=== PATIENT | female | born 1960 | race Caucasian/White ===

== ENCOUNTER 2022-01-13 09:05 | Observation (INO) ==
[2022-01-08 20:23] LABS: Basophils # (Auto) 0.04 K/mcL (0.00-0.30); Basophils % (Auto) 0.5 % (0.0-2.0); Eosinophils # (Auto) 0.12 K/mcL (0.00-0.70); Eosinophils % (Auto) 1.4 % (0.0-7.0); Hemoglobin 13.7 g/dL (11.2-15.7); Lymphocytes # (Auto) 2.17 K/mcL (1.50-4.80); Lymphocytes % (Auto) 25.5 % (15.5-49.0); Mean Cell Volume 98.3 fL (80.0-100.0); Mean Corpuscular HGB Conc 33.4 g/dL (31.0-36.0); Monocytes # (Auto) 0.53 K/mcL (0.10-0.90); Monocytes % (Auto) 6.2 % (1.0-12.0); Neutrophils % (Auto) 66.2 % (38.0-78.0); Platelet Count 233 K/mcL (140-440); RBC 4.17 M/mcL (3.59-5.38); Red Cell Distribution Width 13.2 % (11.5-14.5); WBC 8.5 K/mcL (4.5-11.0)
[2022-01-08 20:35] LABS: Blood Urea Nitrogen 23 mg/dL (6-20); Calcium 9.8 mg/dL (8.6-10.4); Carbon Dioxide 24 mmol/L (22-30); Chloride 104 mmol/L (96-108); Glomerular Filtration Rate 80; Glucose 109 mg/dL (70-105)
--- NOTE | 2022-01-09 07:52 | EKG ---
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
[~2022-01-13 09:05] MED LIST: ceFAZolin 2 GM in DEXTROSE 5% IN WATER 50 ML IV SCH
--- NOTE | 2022-01-13 11:05 | General Surg History&Physical ---
HPI History of Present Illness Patient information: Note initiated : 01/13/22 at 11:03 am Service Date, if different from initiated Date: [] Patient: Gisela Leung 61 y/o F admitted on for Open Hernia Repair Incisional, Open Parastomal. Chief Complaint: [] Chief complaint: Patient presents today for elective incisional hernia and parastomal hernia History of present illness: This is a pleasant 60-year-old female who approximately 5 years ago came in with a GI bleed, she was transferred to [place] where she underwent an exploratory laparotomy with resection of colon and the end ostomy. Patient subsequently ended up with an incisional hernia she underwent a hernia repair with subsequent mesh infection. She underwent exploratory laparotomy with removal of the mesh. Approximately 2 years ago she had an incarcerated parastomal hernia, she underwent a exploratory laparotomy reciting of the stoma and hernia repair without mesh. Since that time she has noticed a recurrent bulge in her incision and around her stoma. At this time she has no fevers chills nausea or vomiting. She is having normal bowel movements and has no obstructive symptoms at this time. She reports that the hernias are gradually getting larger, are starting to interfere with her normal activities. Patient is here to follow-up CT scan abdomen pelvis. CT shows a 6 to 7 cm ventral incisional hernia along with a parastomal hernia. She has multiple loops of bowel in both hernias raising concern for loss of abdominal domain. Patient with no change in his symptoms since she was last seen in clinic. PFSH PFSH All Active Problems (Updated 01/13/22 @ 11:04 by Paulo Tan MD) Parastomal hernia (Acute) Chest pain, non-cardiac (Acute) Recurrent incisional hernia (Chronic) Colostomy in place (Chronic) Osteoarthritis (Acute) Tobacco abuse (Chronic) Hypertension, essential (Chronic) Hepatitis, alcoholic (Chronic) Fatty liver, alcoholic (Chronic) Fatigue (Chronic) COPD (chronic obstructive pulmonary disease) (Chronic) Alcohol abuse, continuous (Chronic) Medical History (Updated 01/13/22 @ 11:04 by Paulo Tan MD) Alcohol abuse, continuous 04/01/2014 - Dr. Vegas 4-6 drinks/day 10/31/2019 (ER Dr. Oates). Colon polyp (07/05/2014-Nissa) TA Colostomy in place COPD (chronic obstructive pulmonary disease) 04/01/2014 - Dr. Vegas Diverticulitis Elevated liver enzymes 04/01/2014 - Dr. Vegas Fatigue Fatty liver, alcoholic 04/02/2014 - Dr. Vegas Hepatitis, alcoholic 04/01/2014 - Dr. Vegas Hypertension, essential Hypomagnesemia 04/01/2014 - Dr. Vegas Metabolic acidosis 04/01/2014 - Dr. Vegas Pyuria 04/01/2014 - Dr. Vegas Tobacco abuse Surgical History H/O colonoscopy (07/05/14) TA H/O tubal ligation 1989 History of colonoscopy (09/06/16) Family History Grandmother-maternal Essential hypertension Myocardial Infarction Arthritis Sister Migraine Father Essential hypertension Cerebrovascular accident Grandmother-paternal Essential hypertension Myocardial Infarction Uncle Malignant neoplasm of colon Grandfather-paternal Malignant neoplasm of lung Mother Arthritis Migraine Sleep apnea Social History marital status: other: Children-3 smoking status: Current every day smoker and Heavy tobacco smoker alcohol intake frequency: 2+ drinks per day substance use type: does not use MEDS/ALLERGIES Home Medications and Allergies Home Medications Medication Instructions Recorded Confirmed Type loperamide 2 mg tablet 2 mg PO Q2-4H PRN loose stool #60 11/09/19 01/13/22 Rx tabs albuterol sulfate 2.5 mg/3 mL 2.5 mg (3 mL) inhalation QID PRN 12/05/20 01/13/22 Rx (0.083 %) solution for nebulization shortness of breath or wheezing #15 mL fluticasone propionate 50 2 spray intranasal QDAY #48 grams 09/02/21 01/13/22 Rx mcg/actuation nasal spray,suspension famotidine 20 mg tablet See Rx Instructions .Route 10/21/21 01/13/22 Rx .COMPLEX #180 tabs ipratropium bromide 17 2 inh inhalation QID #12.9 grams 12/16/21 01/13/22 Rx mcg/actuation HFA aerosol inhaler (Atrovent HFA) albuterol sulfate 90 mcg/actuation 2 puff inhalation Q4H PRN 12/30/21 01/13/22 Rx aerosol inhaler (Proventil HFA) shortness of breath or wheezing #8.5 grams Allergies Allergy/AdvReac Type Severity Reaction Status Date / Time tramadol AdvReac Severe HALLUCINATI Verified 01/13/22 09:18 ONS Physical Examination Vital Signs Vital signs: Temp Pulse Resp BP Pulse Ox O2 Del Method 97.5 F 77 20 116/83 95 01/13/22 09:21 01/13/22 09:21 01/13/22 09:21 01/13/22 09:21 01/13/22 09:21 01/13/22 09:21 General physical appearance General physical exam: well developed, well nourished and no distress Eyes Eye exam: PERRL and normal ocular movement ENT ENT exam: normal pinna, normal nares, normal mucosa, no hearing loss and no congestion Head Head exam IM: Present atraumatic and normocephalic Neck Neck exam: no masses, no bruits, trachea midline, no lymphadenopathy and no georgina ous distension Cardiovascular Cardiovascular exam IM: Present normal rate and rhythm Respiratory Respiratory exam: normal expansion, normal respiratory effort, clear to percussion and clear to auscultation Abdomen Abdomen: Present soft, non tender and bowel sounds Hernia: Present incisional and reducible Genitourinary Genitourinary (Female): Present normal external genitalia Rectum Rectum: Present normal sphincter tone, no hemorrhoids, no tenderness, no masses and no bleeding Integumentary Integumentary: Present no rash, no growths and no abnormal pigmentation Neurologic Neurologic: Present normal coordination and normal sensation Musculoskeletal Musculoskeletal: Present normal gait and normal posture Psychiatric Psychiatric: Present oriented to time, oriented to person, oriented to place, speech is normal and memory intact Results Labs Result diagrams: 01/08/22 15:26 01/08/22 15:26 Labs: All other labs normal. A/P Assessment and plan (1) Recurrent incisional hernia: Status: Chronic (2) Colostomy in place: Status: Chronic (3) Parastomal hernia: Status: Acute Plan Patient presents for scheduled incisional and parastomal hernia repair. No changes since she was seen in clinic. Plan: Open hernia repair Time Spent With Patient Time: Total time spent is greater than 50% in coordination of care (as documented) at patient's floor/unit and/or counseling patient:
[2022-01-13] MEDS ORDERED: fentaNYL 250 MCG/5 ML VIAL IV ONE (11:14)
[2022-01-13] MEDS ORDERED: ROPIVACAINE HCL/PF 30 ML VIAL IJ ONE (11:14)
[2022-01-13] MEDS ORDERED: GLYCOPYRROLATE 0.2 MG/ML VIAL IV ONE (11:14)
[2022-01-13] MEDS ORDERED: ePHEDrine 50 MG/5 ML SYRINGE (ANEST) IV ONE (11:14)
[2022-01-13] MEDS ORDERED: PROPOFOL 200 MG/20 ML VIAL IV ONE (11:14)
[2022-01-13] MEDS ORDERED: ONDANSETRON 4 MG/2 ML VIAL ONE (11:14)
[2022-01-13] MEDS ORDERED: ROCURONIUM 10 MG/ML ML IV ONE (11:14)
[2022-01-13] MEDS ORDERED: DEXAMETHASONE 10 MG/ML VIAL ONE (11:14)
[2022-01-13] MEDS ORDERED: KETAMINE 50 MG/ML Syringe (ANEST) IV ONE (11:14)
[2022-01-13] MEDS ORDERED: LIDOCAINE HCL/PF 100 MG/5 ML SYRINGE IV ONE (11:14)
[2022-01-13] MEDS ORDERED: MAGNESIUM SULFATE 2 GM/50 ML BAG IV ONE (11:14)
[2022-01-13] MEDS ORDERED: MIDAZOLAM 2 MG/2 ML VIAL ONE (11:14)
[2022-01-13] MEDS ORDERED: KETOROLAC 30 MG/ML VIAL ONE (11:14)
[2022-01-13] MEDS ORDERED: SUGAMMADEX SODIUM 200 MG/2 ML VIAL IV ONE (11:14)
[2022-01-13] MEDS ORDERED: diphenhydrAMINE 50 MG/ML VIAL IV PRN (13:13)
[2022-01-13] MEDS ORDERED: MEPERIDINE 25 MG/ML VIAL IV PRN (13:13)
[2022-01-13] MEDS ORDERED: METOPROLOL TARTRATE 5 MG/5 ML VIAL IV PRN (13:13)
[2022-01-13] MEDS ORDERED: LACTATED RINGERS 250 ML IV PRN (13:13)
[2022-01-13] MEDS ORDERED: ONDANSETRON 4 MG/2 ML VIAL IV PRN ×2 (13:13→13:41)
[2022-01-13] MEDS ORDERED: FLUMAZENIL 0.1 MG/ML ML IV PRN (13:13)
[2022-01-13] MEDS ORDERED: ePHEDrine 50 MG/ML AMPUL IV PRN (13:13)
[2022-01-13] MEDS ORDERED: MEPERIDINE 50 MG/ML VIAL IM PRN (13:13)
[2022-01-13] MEDS ORDERED: METHOCARBAMOL 1,000 MG/10 ML VIAL IV PRN (13:13)
[2022-01-13] MEDS ORDERED: PROMETHAZINE 25 MG/ML VIAL IM PRN (13:13)
[2022-01-13] MEDS ORDERED: ATROPINE SULFATE 0.4 MG/ML VIAL IV PRN (13:13)
[2022-01-13] MEDS ORDERED: NALOXONE HCL 0.4 MG/ML VIAL IV PRN (13:13)
[2022-01-13] MEDS ORDERED: IPRATROPIUM/ALBUTEROL 3 ML AMPUL.NEB NEB PRN (13:13)
[2022-01-13] MEDS ORDERED: ACETAMINOPHEN 1,000 MG/100 ML BAG IV ONE (13:13)
[2022-01-13] MEDS ORDERED: PROMETHAZINE 25 MG/ML VIAL IV PRN (13:13)
[2022-01-13] MEDS ORDERED: LACTATED RINGERS 1,000 ML IV SCH (13:15)
[2022-01-13] MEDS ORDERED: oxyCODONE HCL 5 MG TABLET PO PRN (13:41)
[2022-01-13] MEDS ORDERED: ACETAMINOPHEN 325 MG TABLET PO PRN (13:41)
--- NOTE | 2022-01-13 13:41 | Operative Note ---
Brief Operative Note Date of procedure: 01/13/22 Pre-op diagnosis: Incisional hernia, parastomal hernia Post-op diagnosis: same Procedure: Exploratory laparotomy, parastomal hernia repair, incisional hernia repair Grafts/Implants: No Anesthesia: GETA Findings: Extensive adhesions throughout the abdomen, incisional hernia, parastomal hernia abdominal wall abscess. Complications: none Surgeon: Paulo Tan Estimated blood loss (cc): 50 Specimens Removed/Pathology: none sent Condition: stable Disposition: floor Operative Note Operative Note: After all risk benefits and alternatives to the procedure were discussed with the patient at length she verbalized understanding and desire to continue with procedure. Patient was taken main operating placed upon the operative table. General anesthesia was induced over endotracheal tube. Patient's prepped and draped in standard sterile surgical fashion. Surgical timeout was taken to verify patient and procedure being performed. The ostomy site was covered with a Tegaderm and then midline incision was made carried down through skin subtenons tissue. The midline hernia was entered, lysis of adhesions was undertaken with blunt and sharp dissection to remove the bowel out of the incisional hernia which was then opened along the entirety of the incision. Upon entry into the abdomen dense adhesions were encountered. Extensive lysis of adhesions was taken out to fully reduce both the incisional hernia and the parastomal hernia. Once this was done the bowel was able to be ran from the ileostomy site down to the duodenum. The bowel was inspected and no injuries were identified. In dissecting the hernia sac a pocket of pus was encountered in the posterior fascia on the patient's right-hand side secondary this decision was made not to place mesh. The extensive lysis of adhesion took approximately an hour and a half to fully complete. Once this was done the bowel was returned to its anatomical position. Interrupted 0 PDS sutures were used to close the fascial defect around the stoma leaving adequate room for the bowel. The midline fascia was then closed with a running looped 0 PDS suture. The fascia came together without difficulty. Subcutaneous tissues were copiously irrigated and then closed with surgical dejon. A Kamilla dressing was then applied. Patient was then transferred to postanesthesia care unit awake alert in good condition.
[2022-01-13] MEDS: fentaNYL 100 MCG/2 ML VIAL IV PRN ×4 (14:18→15:19)
[2022-01-13] MEDS: DEXTROSE 5%-1/2NS 1,000 ML IV SCH (16:30)
[2022-01-13] MEDS: HYDROcodone/APAP 5/325MG TABLET PO PRN (20:04)
[2022-01-14] MEDS: HYDROcodone/APAP 5/325MG TABLET PO PRN ×6 (00:11→22:20)
[2022-01-14] MEDS: IBUPROFEN 600 MG TABLET PO PRN ×3 (05:08→21:04)
[2022-01-14] MEDS: DEXTROSE 5%-1/2NS 1,000 ML IV SCH ×2 (05:08→16:33)
--- NOTE | 2022-01-14 08:23 | General Surgery Progress Note ---
SUBJECTIVE Subjective Patient information: Note initiated : 01/14/22 at 8:21 am Service Date, if different from initiated Date: [] Patient: Gisela Leung 61 y/o F admitted on for Open Hernia Repair Incisional, Open Parastomal. Chief Complaint: [] Interval history: Postop day #1 status post extensive lysis of adhesions, incisional hernia repair, parastomal hernia repair. Patient is doing well this morning, is ambulatory. Pain is adequately controlled. She has return of ileostomy output. Pertinent ROS: No fevers chills nausea or vomiting. Constitutional Vitals: Vital Signs Temp Pulse Resp BP Pulse Ox O2 Del Method O2 Flow Rate 97.4 F 84 20 128/73 94 0 01/14/22 07:48 01/14/22 07:48 01/14/22 07:48 01/14/22 07:48 01/14/22 07:48 01/14/22 07:48 01/13/22 15:04 Period Temp Pulse Resp BP Sys/Perry Pulse Ox O2 Del Method O2 Flow Rate Last 24 Hr 97.0 F-98.9 F 70-92 13-22 114-151/73-96 91-100 Room Air-Room Air 0-6 Intake and Output 01/13/22 01/14/22 01/14/22 21:59 05:59 13:59 Intake Total 4040 1700 Output Total 600 700 450 Balance 3440 1000 -450 Weight 270 lb Intake & Output: Intake & Output 01/13/22 01/14/22 01/14/22 21:59 05:59 13:59 Intake Total 4040 1700 Output Total 600 700 450 Balance 3440 1000 -450 Weight 270 lb Intake: IV 100 1000 Dextrose 5%-1/2Ns IV Solution 1 1000 ,000 ml @ 75 mls/hr IV .[id number] [facility] Rx#:[id number] Oral 240 700 IV - Manual Only 3700 Output: Void Amount 450 650 450 Stool 100 50 Estimated Blood Loss 50 Other: Meal Dinner Urine Appearance Clear Clear Urine Color Yellow Bright Yellow General appearance: cooperative and no acute distress GI/Abdominal GI/Abdominal exam: Present normal bowel sounds, soft and tenderness; Absent distended Additional comments: Kamilla wound dressing in place. A/P Assessment and plan (1) Parastomal hernia: Status: Acute (2) Recurrent incisional hernia: Status: Chronic Plan Postop day #1. Patient is doing well. Advance diet as tolerated. Oral pain medications, continue with ambulation. Time Spent With Patient Time: Total time spent is greater than 50% in coordination of care (as documented) at patient's floor/unit and/or counseling patient:
[2022-01-15] MEDS: HYDROcodone/APAP 5/325MG TABLET PO PRN ×2 (02:14→06:19)
[2022-01-15] MEDS: IBUPROFEN 600 MG TABLET PO PRN ×2 (04:17→11:27)
--- NOTE | 2022-01-15 08:19 | Discharge Summary ---
Discharge Provider Provider IMPORTANT FOLLOW-UP INFORMATION FOR PCP: Patient information: Note initiated : 01/15/22 at 8:18 am Service Date, if different from initiated Date: [] Patient: Gisela Leung 61 y/o F admitted on 01/14/22 for Open Hernia Repair Incisional, Open Parastomal. Chief Complaint: [] Date of admission: 01/14/22 08:23 Discharge date: 01/15/22 Primary care physician: Bautista Bryant PA-C COURSE Hospital Course Hospital course: Patient is admitted for and underwent a extensive lysis of adhesions, exploratory laparotomy with incisional hernia and parastomal hernia repair. Postop patient progressed without difficulty was advanced to regular diet which she is tolerating well. Discharge diagnosis: Status post incisional and parastomal hernia repair Time Spent with Patient Time attestation: Total time spent providing and/or coordinating discharge services: Time spent: Less than 30 minutes Physical Examination Vital Signs Vital signs: Temp Pulse Resp BP Pulse Ox O2 Del Method O2 Flow Rate 97.2 F 88 14 111/66 97 0 01/15/22 08:00 01/15/22 08:00 01/15/22 08:00 01/15/22 08:00 01/15/22 08:00 01/15/22 08:00 01/13/22 15:04 Discharge Plan Patient/Caregiver Discharge Instructions Activity: increase activity as tolerated Diet: Regular Diet Activity Restrictions/Additional Instructions: Slowly resume normal activity as tolerated. Follow-up with me next week. Remove Kamilla incision management system on Wednesday Prescriptions: New ibuprofen 800 mg tablet 800 mg PO TID PRN (Reason: pain) Qty: 90 0RF hydrocodone-acetaminophen 5-325 mg tablet 1 tab PO Q6H PRN (Reason: pain) Qty: 10 0RF Continued fluticasone propionate 50 mcg/actuation spray,suspension 2 spray intranasal QDAY Qty: 48 3RF famotidine 20 mg tablet See Rx Instructions .ROUTE .COMPLEX Qty: 180 0RF Dose Instruction: TAKE 1 TABLET BY MOUTH TWICE DAILY Rx Instructions: TAKE 1 TABLET BY MOUTH TWICE DAILY ipratropium bromide 17 mcg/actuation HFA aerosol inhaler 17 mcg/actuation HFA aerosol inhaler 2 inh INHALATION QID Qty: 12.9 2RF albuterol sulfate [Proventil HFA] 90 mcg/actuation HFA aerosol inhaler 2 puff INHALATION Q4H PRN (Reason: shortness of breath or wheezing) Qty: 8.5 11RF loperamide 2 mg tablet 2 mg PO Q2-4H PRN (Reason: loose stool) Qty: 60 1RF Rx Instructions: after each loose stool until symptoms controlled;do not exceed 16 mg total dose in 24 hrs albuterol sulfate 2.5 mg /3 mL (0.083 %) solution for nebulization 2.5 mg inhalation QID PRN (Reason: shortness of breath or wheezing) Qty: 15 1RF Follow Up Plan Follow up with: Paulo Tan MD [Physician] - 01/28/22 9:00 am Patient Disposition: Home, Self-Care Discharge Orders: Discharge Order (Routine); Ordered 01/15/22 Ordered By: Paulo Tan Pending Pending Pending: Resuscitation Status Resuscitate (Full Code) Diet Regular Diet Start WedJan 14 08 Hydrocodone Bitart/Acetaminophen (Hydrocodone/Apap 5/325mg Tablet) 1 tab PO Q4HP PRN; Protocol PRN Reason: Per Pain Protocol Last Admin: 01/15/22 06:19 Dose: 1 tab Documented By: Admin: 01/15/22 02:14 Dose: 1 tab Documented By: Admin: 01/14/22 22:20 Dose: 1 tab Documented By: Admin: 01/14/22 18:18 Dose: 1 tab Documented By: Admin: 01/14/22 14:20 Dose: 1 tab Documented By: Admin: 01/14/22 09:52 Dose: 1 tab Documented By: Admin: 01/14/22 04:13 Dose: 1 tab Documented By: Admin: 01/14/22 00:11 Dose: 1 tab Documented By: Admin: 01/13/22 20:04 Dose: 1 tab Documented By: AMANDA Ibuprofen (Ibuprofen 600 Mg Tablet) 600 mg PO QIDP PRN; Protocol PRN Reason: Per Pain Protocol/Fever > 101 Last Admin: 01/15/22 04:17 Dose: 600 mg Documented By: Admin: 01/14/22 21:04 Dose: 600 mg Documented By: Admin: 01/14/22 12:41 Dose: 600 mg Documented By: Admin: 01/14/22 05:08 Dose: 600 mg Documented By: AAMNDA Shift Summary 01/15/22 00:15 Shift Summary by Skylar Coyle Primary Diagnosis: Hernia repair Registration Status: [facility] Date of Surgery (if applicable):01/13/22 Pertinent Medical Dx/Issue(s): History of multiple abdominal surgeries with prior placement of colostomy Med management (antibiotics, diuretics, BP): Iv fluids, pain medications Skin/Wound Care: Wound vac placed in surgery returning sanguinous fluid. canister changed yesterday. colostomy in place and returning liquid stool.-pt self care Vital Signs with Trends: VSS on RA O2, liter flow/saturations: No oxygen needs Pain management (acute vs. chronic): Pt has chronic pain and acute form surgery. Norcos q4 h, motrin q6 PRN- alternating has helped with pain Lab/Rad (abnormals, trends): Neuro/Mental Status: A & O x4 cooperative with cares Urinary Elimination Device: Voids per toilet Urinary output greater than 30mL/hr? yes Date of last BM: colostomy 01/15 Lines/Tubes: SL to RH Activity: Up with stand by assist of 1 with abdominal binder/FWW Recommendations/questions for MD: none at this time Discharge Plan (needs, disposition, etc): TBD possibly today Initialized on 01/15/22 00:15 - END OF NOTE
== END 2022-01-15 11:49 | disposition home or self-care (01) ==
LOC: SUR 09:05 → MEDSUR 09:05
PROVIDERS: ADMIT Surgery; ATTEND Surgery

== ENCOUNTER 2022-06-11 10:21 | Inpatient (IN) ==
[2022-06-11] MEDS ORDERED: IOPAMIDOL 100 ML BOTTLE IV ONE (10:22)
[2022-06-11 10:35] LABS: POC Calcium, Ionized 1.21 (1.16-1.32); POC Creatinine 0.8 (0.6-1.2); POC Potassium 3.7 (3.3-5.1)
--- NOTE | 2022-06-11 10:37 | Emergency Department Note ---
HPI General Chief complaint: Abdominal Pain Stated complaint: Abd pain Time Seen by Provider: 06/11/22 10:36 Source: EMS Mode of arrival: EMS Limitations: no limitations History of Present Illness HPI Narrative: Narrative: Patient is a 61-year-old female with a history of parastomal hernia, hypertension, COPD who presents to the emergency department due to abdominal pain, nausea, and vomiting. She states that she has had nausea since last night, and has been vomiting a significant amount. She states that she this morning had significant abdominal pain, so called for an ambulance to bring her to the emergency department. She has pain throughout the belly that is an aching and "just pain." She has had green-colored vomit. She also has had decreased output through her ostomy, but had surgery just 2 days ago and has not had a significant amount of food since then. She denies any other acute symptoms. Related Data Home Medications Medication Instructions Recorded Confirmed famotidine 20 mg tablet 20 mg PO BID 06/01/22 06/11/22 Previous Rx's Medication Instructions Recorded loperamide 2 mg tablet 2 mg PO Q2-4H PRN loose stool #60 11/09/19 tabs albuterol sulfate 2.5 mg/3 mL 2.5 mg (3 mL) inhalation QID PRN 12/05/20 (0.083 %) solution for nebulization shortness of breath or wheezing #15 mL albuterol sulfate 90 mcg/actuation 2 puff inhalation Q4H PRN 12/30/21 aerosol inhaler (Proventil HFA) shortness of breath or wheezing #8.5 grams acetaminophen 650 mg 650 mg PO Q8H PRN pain #90 tabs 06/09/22 tablet,extended release (Tylenol 8 Hour) ibuprofen 600 mg tablet 600 mg PO Q6H PRN pain #90 tabs 06/09/22 hydrocodone 5 mg-acetaminophen 325 1 tab PO Q4H PRN pain #20 tabs 06/10/22 mg tablet ipratropium bromide 17 2 inh inhalation QID #12.9 grams 06/10/22 mcg/actuation HFA aerosol inhaler (Atrovent HFA) Allergies Allergy/AdvReac Type Severity Reaction Status Date / Time hydromorphone [From Dilaudid] AdvReac Mild Hallucinati Verified 06/11/22 10:23 ng Review of Systems ROS ROS Narrative: Narrative: Constitutional: Denies fever or weakness Eyes: Denies eye pain or vision change ENT ED: Denies throat pain or rhinorrhea Cardiovascular: Denies chest pain, dyspnea on exertion, orthopnea or edema Respiratory: Denies shortness of breath or cough Gastrointestinal: Reports abdominal pain, nausea and vomiting; Denies diarrhea, constipation, hematochezia or melena Musculoskeletal: Denies back pain or myalgia Integumentary: Denies rash or lesions Neurological: Denies headache, weakness, numbness, confusion, abnormal gait or dizziness PFSH Narrative Patient History Narrative: Narrative: Medical/Surgical/Family History All Active Problems (Updated 06/18/22 @ 11:56 by Seun Tineo MD) Nausea & vomiting (Acute) Abdominal pain (Acute) Postoperative ileus (Acute) Parastomal hernia (Acute) Chest pain, non-cardiac (Acute) Recurrent incisional hernia (Chronic) Colostomy in place (Chronic) Osteoarthritis (Acute) Tobacco abuse (Chronic) Hypertension, essential (Chronic) Hepatitis, alcoholic (Chronic) Fatty liver, alcoholic (Chronic) Fatigue (Chronic) COPD (chronic obstructive pulmonary disease) (Chronic) Alcohol abuse, continuous (Chronic) Medical History Alcohol abuse, continuous 04/01/2014 - Dr. Vegas 4-6 drinks/day 10/31/2019 (ER Dr. Oates). Colon polyp (07/05/2014-Dett[place]iler) TA Colostomy in place COPD (chronic obstructive pulmonary disease) 04/01/2014 - Dr. Vegas Diverticulitis Elevated liver enzymes 04/01/2014 - Dr. Vegas Fatigue Fatty liver, alcoholic 04/02/2014 - Dr. Vegas Hepatitis, alcoholic 04/01/2014 - Dr. Vegas Hypertension, essential Hypomagnesemia 04/01/2014 - Dr. Vegas Metabolic acidosis 04/01/2014 - Dr. Vegas Pyuria 04/01/2014 - Dr. Vegas Tobacco abuse Surgical History H/O colonoscopy (07/05/14) TA H/O tubal ligation 1988 History of colonoscopy (09/06/16) History of exploratory laparotomy 01/13/2022-Exploratory laparotomy, parastomal hernia repair, incisional hernia repair Family History Grandmother-maternal Essential hypertension Myocardial Infarction Arthritis Sister Migraine Father Essential hypertension Cerebrovascular accident Grandmother-paternal Essential hypertension Myocardial Infarction Uncle Malignant neoplasm of colon Grandfather-paternal Malignant neoplasm of lung Mother Arthritis Migraine Sleep apnea Social History Smoking Status: Current every day smoker and Heavy tobacco smoker Alcohol Intake Frequency: 2+ drinks per day Substance Use: does not use Exam Narrative Narrative: Narrative: General Limitations: no limitations General appearance: Present alert and in no apparent distress; Absent anxious, appears intoxicated or sleepy Head Head: Present atraumatic and normocephalic Eye Eye: Present EOMI; Absent scleral icterus or nystagmus ENT ENT: Present mucous membranes moist; Absent nasal congestion Neck Neck: Present full ROM; Absent tenderness Chest Chest: Present normal inspection and symmetric chest wall rise; Absent tenderness Respiratory Respiratory: Present normal lung sounds bilaterally; Absent respiratory distress or accessory muscle use Cardiovascular Cardiovascular: Present regular rate, normal rhythm and normal heart sounds Adbominal Abdominal: Present soft, tenderness, guarding and normal bowel sounds; Absent di stention, rebound or rigidity Extremities Extremities: Present normal inspection and full ROM; Absent tenderness Back Back: Present normal inspection and full ROM; Absent tenderness, CVA tenderness (R) or CVA tenderness (L) Neurological Neurological: Present alert and oriented X3 Psychiatric Psychiatric: Present normal affect and normal mood Skin Skin: Present warm (WNL), dry and normal color Course Vital Signs Vital signs: Vital Signs Temperature 97.1 F 06/11/22 10:21 Pulse Rate 88 06/11/22 10:21 Respiratory Rate 19 06/11/22 10:21 Blood Pressure 107/71 06/11/22 10:21 Pulse Oximetry (%) 95 06/11/22 10:21 Oxygen Delivery Method Room Air 06/11/22 10:21 Temperature 98.0 F 06/14/22 08:20 Pulse Rate 77 06/14/22 17:03 Respiratory Rate 16 06/14/22 17:33 Blood Pressure 138/81 06/14/22 17:03 Pulse Oximetry (%) 94 06/14/22 17:03 Oxygen Delivery Method Room Air 06/14/22 17:03 Oxygen Flow Rate (L/min) 0 06/13/22 12:00 [facility] Narrative Medical decision making narrative: Narrative: Patient is a 61-year-old female who presents to the emergency department due to nausea, vomiting, and abdominal pain. Differential diagnoses include SBO, gastroenteritis, surgical complication from recent surgery, and electrolyte abnormality and dehydration from nausea and vomiting. Patient's labs do demonstrate a mild transaminitis, but otherwise reassuring. CT scan demonstrates ileus versus small bowel obstruction. I have spoken to Dr. Tan who is agreed to see and evaluate patient for admission. Lab Data 06/11/22 10:32 Labs: Lab Results 06/11/22 06/11/22 06/11/22 Range/Units 10:32 10:32 10:32 WBC 10.7 (4.5-11.0) K/mcL RBC 4.47 (3.59-5.38) M/mcL Hgb 14.4 (11.2-15.7) g/dL Hct 43.5 (34.1-44.9) % POC Hct 45.0 (36-48) MCV 97.3 (80.0-100.0) fL MCH 32.2 (26.0-34.0) pg MCHC 33.1 (31.0-36.0) g/dL RDW 13.6 (11.5-14.5) % Plt Count 230 (140-440) K/mcL MPV 10.3 (8.8-12.5) fL Immature Gran % (Auto) 0.5 (0.0-0.5) % Neut % (Auto) 83.1 H (38.0-78.0) % Lymph % (Auto) 9.7 L (15.5-49.0) % Esmeralda % (Auto) 5.5 (1.0-12.0) % Eos % (Auto) 0.9 (0.0-7.0) % Baso % (Auto) 0.3 (0.0-2.0) % Lymph # (Auto) 1.04 L (1.50-4.80) K/mcL Esmeralda # (Auto) 0.59 (0.10-0.90) K/mcL Eos # (Auto) 0.10 (0.00-0.70) K/mcL Baso # (Auto) 0.03 (0.00-0.30) K/mcL Immature Gran # 0.05 (0.00-0.05) K/mcl Absolute Neutrophils 8.86 H (1.80-8.00) K/mcL POC Sodium 139 (133-145) POC Potassium 3.7 (3.3-5.1) POC Chloride 105 (96-108) POC Total CO2 26.0 (22-30) POC BUN 18 (6-20) POC Creatinine 0.8 (0.6-1.2) POC Glucose 132 H (70-105) POC WB Ioniz Calcium 1.21 (1.16-1.32) Total Bilirubin 0.5 (0.1-1.0) mg/dL Direct Bilirubin < 0.2 (0-0.3) mg/dL AST 56 H (<32) U/L ALT 44 H (<40) U/L Alkaline Phosphatase 75 (39-117) U/L Total Protein 6.9 (5.9-8.4) gm/dL Albumin 4.0 (3.2-5.2) gm/dL Globulin 2.9 (2.2-3.7) gm/dL Lipase 14 (7-60) U/L Discharge Plan Patient/Caregiver Discharge Instructions Pt seen by GROUP UNDERWRITER/PA only: No Clinical Impression: Nausea & vomiting, Abdominal pain Activity: increase activity as tolerated Patient Disposition: Xfer As Inpt ([facility]) Condition: Good Discharge Date/Time: 06/11/22 17:12
[2022-06-11] MEDS ORDERED: morphine 4 MG/ML VIAL IV ONE (11:10)
[2022-06-11 11:40] LABS: Basophils # (Auto) 0.03 K/mcL (0.00-0.30); Basophils % (Auto) 0.3 % (0.0-2.0); Eosinophils % (Auto) 0.9 % (0.0-7.0); Hematocrit 43.5 % (34.1-44.9); Hemoglobin 14.4 g/dL (11.2-15.7); Lymphocytes # (Auto) 1.04 K/mcL (1.50-4.80); Lymphocytes % (Auto) 9.7 % (15.5-49.0); Mean Cell Volume 97.3 fL (80.0-100.0); Mean Corpuscular HGB Conc 33.1 g/dL (31.0-36.0); Mean Platelet Volume 10.3 fL (8.8-12.5); Monocytes # (Auto) 0.59 K/mcL (0.10-0.90); Monocytes % (Auto) 5.5 % (1.0-12.0); Neutrophils % (Auto) 83.1 % (38.0-78.0); Platelet Count 230 K/mcL (140-440); RBC 4.47 M/mcL (3.59-5.38); Red Cell Distribution Width 13.6 % (11.5-14.5); WBC 10.7 K/mcL (4.5-11.0)
[2022-06-11 12:02] LABS: ALT/SGPT 44 U/L (<40); AST/SGOT 56 U/L (<32); Alkaline Phosphatase 75 U/L (39-117); Bilirubin,Direct < 0.2 mg/dL (0-0.3); Bilirubin,Total 0.5 mg/dL (0.1-1.0); Globulin 2.9 gm/dL (2.2-3.7)
--- NOTE | 2022-06-11 14:21 | Cat Scan Report ---
History: Increasing abdominal pain with nausea and vomiting, two days postop abdominal wall hernia repair graft technique: Patient was imaged following injection of intravenous nonionic contrast scanning during the venous and excretory phase. Sagittal and coronal reformats were created. The radiation exposure was limited using dose reduction technology FINDINGS: There is mild atelectasis in the posterior basal segment left lower lobe. The liver and spleen are normal in size and homogeneous. Gallbladder is contracted and contains a moderate size calcified stone. Gallbladder wall is not thickened or inflamed and the bile ducts are not abnormally dilated. The gallstone is a chronic finding, unchanged since 02/24/22. No mass or inflammation are present in the pancreas. The adrenals are normal. 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 This is unchanged from the prior exam. The left kidney is normal. The aorta is normal in caliber and there are scattered plaques along the wall. There are postsurgical changes in the midline of the anterior abdominal wall following hernia repair. To the left midline, near the incision site there is a well-circumscribed loculated collection of fluid which measures 2.7 x 7.0 cm. Preoperatively on 02/24/22 there was a 2.0 x 2.4 cm fluid collection at the same level. Inferior and medial to the low-attenuation fluid there is an irregular collection of relatively high attenuation material measuring roughly 3 x 3.8 cm. This may be inflammatory change, scar and possibly a small organized hematoma. There was a large amount of scar tissue in the same general location on the prior CT. The mesh is radiolucent and is not seen. There is no apparent entrapment of bowel at this level. Patient has had a prior near complete colectomy performed. There is a residual stump of the distal sigmoid and rectum which contains fecal material. An ileostomy is present anteriorly in the right mid abdomen. There is a large parastomal hernia containing fat. The ileum which passes through the stoma is normal in caliber. Within the abdomen the small intestine is distended and contains multiple air-fluid levels. Measures up to 4.1 cm. A transition point is not clearly identified. No free intraperitoneal air or free fluid are present. There is a moderate amount of subcutaneous air in the anterior and left lateral abdominal wall. This extends into the chest and into the anterior pericardial space. IMPRESSION: Dilated fluid-filled small bowel with air-fluid levels. This is more likely a postoperative ileus than a small bowel obstruction. Enlarging seroma and small hematoma at the operative site in the midline of the abdomen, where the hernia had been repaired. Dr. Tineo was called with the report Interpreted and Authenticated by: Antoine Parks 06/11/22
[2022-06-11] MEDS: DEXTROSE 5%-1/2NS 1,000 ML IV SCH (16:29)
[2022-06-11] MEDS: morphine 4 MG/ML VIAL IV PRN ×2 (16:29→23:25)
[2022-06-11] MEDS: ONDANSETRON 4 MG/2 ML VIAL IV PRN (16:37)
--- NOTE | 2022-06-11 17:06 | XRay Report ---
HISTORY: Nasogastric tube insertion FINDINGS: NG tube is been inserted into the stomach. The sidehole is in the gastroesophageal junction of the tip is along the greater curvature of the stomach. Stomach is largely decompressed. There is contrast in both kidneys following preceding CT scan. No free intra-abdominal air is present. IMPRESSION: Nasogastric tube in the body of the stomach. Interpreted and Authenticated by: Antoine Parks 06/11/22
--- NOTE | 2022-06-11 19:12 | General Surg History&Physical ---
HPI History of Present Illness Patient information: Note initiated : 06/11/22 at 7:09 pm Service Date, if different from initiated Date: [] Patient: Gisela Leung a 61 y/o F admitted on 06/11/22 for Abd pain. Chief Complaint: [] Chief complaint: Nausea and emesis History of present illness: Ms. Leung is a 61 year old F who is postop day #2 status post robotic assisted extensive lysis of adhesions, incisional and parastomal hernia repair. Patient was discharged home on postop day #1, was doing well tolerating diet and ambulatory. She reports that this morning she woke up and was nauseous and then started having emesis. She denies any fevers chills. She presented to the emergency room where work-up is significant for normal white blood cell count, afebrile normal vital signs but CT scan which is read as a postop ileus versus early partial small bowel obstruction. Review of Systems Review of systems: All systems reviewed, negative other than above PFSH PFSH All Active Problems Postoperative ileus (Acute) Parastomal hernia (Acute) Chest pain, non-cardiac (Acute) Recurrent incisional hernia (Chronic) Colostomy in place (Chronic) Osteoarthritis (Acute) Tobacco abuse (Chronic) Hypertension, essential (Chronic) Hepatitis, alcoholic (Chronic) Fatty liver, alcoholic (Chronic) Fatigue (Chronic) COPD (chronic obstructive pulmonary disease) (Chronic) Alcohol abuse, continuous (Chronic) Medical History Alcohol abuse, continuous 04/01/2014 - Dr. Vegas 4-6 drinks/day 10/31/2019 (ER Dr. Oates). Colon polyp (07/05/2014-Dettrobertler) TA Colostomy in place COPD (chronic obstructive pulmonary disease) 04/01/2014 - Dr. Vegas Diverticulitis Elevated liver enzymes 04/01/2014 - Dr. Vegas Fatigue Fatty liver, alcoholic 04/02/2014 - Dr. Vegas Hepatitis, alcoholic 04/01/2014 - Dr. Vegas Hypertension, essential Hypomagnesemia 04/01/2014 - Dr. Vegas Metabolic acidosis 04/01/2014 - Dr. Vegas Pyuria 04/01/2014 - Dr. Vegas Tobacco abuse Surgical History H/O colonoscopy (07/05/14) TA H/O tubal ligation 1988 History of colonoscopy (09/06/16) History of exploratory laparotomy 01/13/2022-Exploratory laparotomy, parastomal hernia repair, incisional hernia repair Family History Grandmother-maternal Essential hypertension Myocardial Infarction Arthritis Sister Migraine Father Essential hypertension Cerebrovascular accident Grandmother-paternal Essential hypertension Myocardial Infarction Uncle Malignant neoplasm of colon Grandfather-paternal Malignant neoplasm of lung Mother Arthritis Migraine Sleep apnea Social History marital status: other: Children-3 smoking status: Smoker, status unknown alcohol intake frequency: 2+ drinks per day substance use type: does not use MEDS/ALLERGIES Home Medications and Allergies Home Medications Medication Instructions Recorded Confirmed Type loperamide 2 mg tablet 2 mg PO Q2-4H PRN loose stool #60 11/09/19 06/11/22 Rx tabs albuterol sulfate 2.5 mg/3 mL 2.5 mg (3 mL) inhalation QID PRN 12/05/20 06/11/22 Rx (0.083 %) solution for nebulization shortness of breath or wheezing #15 mL albuterol sulfate 90 mcg/actuation 2 puff inhalation Q4H PRN 12/30/21 06/11/22 Rx aerosol inhaler (Proventil HFA) shortness of breath or wheezing #8.5 grams famotidine 20 mg tablet 20 mg PO BID 06/01/22 06/11/22 History acetaminophen 650 mg 650 mg PO Q8H PRN pain #90 tabs 06/09/22 06/11/22 Rx tablet,extended release (Tylenol 8 Hour) ibuprofen 600 mg tablet 600 mg PO Q6H PRN pain #90 tabs 06/09/22 06/11/22 Rx hydrocodone 5 mg-acetaminophen 325 1 tab PO Q4H PRN pain #20 tabs 06/10/22 06/11/22 Rx mg tablet ipratropium bromide 17 2 inh inhalation QID #12.9 grams 06/10/22 06/11/22 Rx mcg/actuation HFA aerosol inhaler (Atrovent HFA) Allergies Allergy/AdvReac Type Severity Reaction Status Date / Time hydromorphone [From Dilaudid] AdvReac Mild Hallucinati Verified 06/11/22 10:23 ng Physical Examination Vital Signs Vital signs: Temp Pulse Resp BP Pulse Ox O2 Del Method 97.9 F 93 H 16 159/101 92 Room Air 06/11/22 17:12 06/11/22 16:13 06/11/22 17:12 06/11/22 17:12 06/11/22 17:12 06/11/22 17:12 General physical appearance General physical exam: well developed, well nourished and no distress Eyes Eye exam: PERRL and normal ocular movement ENT ENT exam: normal pinna, normal nares, normal mucosa, no hearing loss and no congestion Head Head exam IM: Present atraumatic and normocephalic Neck Neck exam: no masses, no bruits, trachea midline, no lymphadenopathy and no venous distension Cardiovascular Cardiovascular exam IM: Present normal rate and rhythm Respiratory Respiratory exam: normal expansion, normal respiratory effort, clear to percussion and clear to auscultation Abdomen Abdomen: Present soft, tender, bowel sounds, surgical scars (Incisions are clean dry and intact without evidence of infection) and distended; Absent masses, guarding, rigid or rebound Hernia: Present none Genitourinary Genitourinary (Female): Present normal external genitalia Rectum Rectum: Present normal sphincter tone, no hemorrhoids, no tenderness, no masses and no bleeding Integumentary Integumentary: Present no rash, no growths and no abnormal pigmentation Neurologic Neurologic: Present normal coordination and normal sensation Musculoskeletal Musculoskeletal: Present normal gait and normal posture Psychiatric Psychiatric: Present oriented to time, oriented to person, oriented to place, s peech is normal and memory intact Results Labs 06/11/22 10:32 Labs: Abnormal lab results 06/11/22 06/11/22 06/11/22 Range/Units 10:32 10:32 10:32 Neut % (Auto) 83.1 H (38.0-78.0) % Lymph % (Auto) 9.7 L (15.5-49.0) % Lymph # (Auto) 1.04 L (1.50-4.80) K/mcL Absolute Neutrophils 8.86 H (1.80-8.00) K/mcL POC Glucose 132 H (70-105) AST 56 H (<32) U/L ALT 44 H (<40) U/L Diabetes panel 06/11/22 Range/Units 10:32 AST 56 H (<32) U/L ALT 44 H (<40) U/L Alkaline Phosphatase 75 (39-117) U/L Total Protein 6.9 (5.9-8.4) gm/dL Albumin 4.0 (3.2-5.2) gm/dL Calcium panel 06/11/22 Range/Units 10:32 Albumin 4.0 (3.2-5.2) gm/dL Adrenal panel 06/11/22 Range/Units 10:32 Total Bilirubin 0.5 (0.1-1.0) mg/dL AST 56 H (<32) U/L ALT 44 H (<40) U/L Alkaline Phosphatase 75 (39-117) U/L Total Protein 6.9 (5.9-8.4) gm/dL Albumin 4.0 (3.2-5.2) gm/dL All other labs normal. A/P Assessment and plan (1) Parastomal hernia: Status: Acute (2) Recurrent incisional hernia: Status: Chronic (3) Colostomy in place: Status: Chronic (4) Hypertension, essential: Status: Chronic (5) Postoperative ileus: Status: Acute Plan Patient presents with postoperative ileus status post extensive lysis of adhesions. We will admit, place NG tube, n.p.o. Await return of bowel function. Time Spent With Patient Time: Total time spent is greater than 50% in coordination of care (as documented) at patient's floor/unit and/or counseling patient:
[2022-06-11] MEDS: KETOROLAC 30 MG/ML VIAL IV PRN (19:36)
[2022-06-11] MEDS: 0.9 % SODIUM CHLORIDE 10 ML SYRINGE IV SCH (20:19)
[2022-06-12] MEDS: DEXTROSE 5%-1/2NS 1,000 ML IV SCH ×4 (01:34→21:59)
[2022-06-12] MEDS: KETOROLAC 30 MG/ML VIAL IV PRN ×3 (02:54→16:01)
[2022-06-12] MEDS: 0.9 % SODIUM CHLORIDE 10 ML SYRINGE IV SCH ×3 (05:07→21:59)
[2022-06-12] MEDS: morphine 4 MG/ML VIAL IV PRN ×4 (07:33→23:21)
--- NOTE | 2022-06-12 08:54 | General Surgery Progress Note ---
SUBJECTIVE Subjective Patient information: Note initiated : 06/12/22 at 8:52 am Service Date, if different from initiated Date: [] Patient: Gisela Leung 61 y/o F admitted on 06/11/22 for Abd pain. Chief Complaint: [] Principal diagnosis: Postoperative ileus Interval history: Patient seen and examined. Patient feels better this morning with NG tube, almost 1 L out of her NG tube. She feels no further nausea or emesis. Colostomy is functioning which is most consistent with postoperative ileus. Patient has no fevers chills nausea or vomiting. Constitutional Vitals: Vital Signs Temp Pulse Resp BP Pulse Ox O2 Del Method O2 Flow Rate 98.3 F 88 16 122/74 90 Room Air 0 06/12/22 07:34 06/12/22 07:34 06/12/22 07:34 06/12/22 07:34 06/12/22 07:34 06/12/22 07:34 06/12/22 04:00 Period Temp Pulse Resp BP Sys/Perry Pulse Ox O2 Del Method O2 Flow Rate Last 24 Hr 97.1 F-98.3 F 83-95 16-19 96-159/61-101 90-95 Room Air-Room Air 0-0 Intake and Output 06/11/22 06/12/22 06/12/22 19:59 03:59 11:59 Intake Total 83 902 0 Output Total 2100 800 Balance 83 -1198 -800 Weight 260 lb 260 lb Intake & Output: Intake & Output 06/11/22 06/12/22 06/12/22 19:59 03:59 11:59 Intake Total 83 902 0 Output Total 2100 800 Balance 83 -1198 -800 Weight 260 lb 260 lb Intake: IV 83 902 Dextrose 5%-1/2Ns IV Solution 1 83 902 ,000 ml @ 100 mls/hr IV .Q10H [facility] Rx#:[id number] Tube Feeding 0 0 Output: Gastric Drainage 1000 350 Right Nare 1000 350 Void Amount 900 150 Stool 200 300 Other: Urine Appearance Clear Clear Urine Color Light Aditi Light Aditi Urine Odor Normal Normal Stool Color Brown Brown Stool Consistency Soft Soft General appearance: cooperative and no acute distress GI/Abdominal GI/Abdominal exam: Present normal bowel sounds, soft and tenderness; Absent d istended or rebound Additional comments: Incisions are clean dry and intact A/P Assessment and plan (1) Postoperative ileus: Plan: Plan continue with NG tube today, can have ice chips. Encourage ambulation. We will continue to follow colostomy output. Status: Acute Time Spent With Patient Time: Total time spent is greater than 50% in coordination of care (as documented) at patient's floor/unit and/or counseling patient:
[2022-06-12] MEDS: ONDANSETRON 4 MG/2 ML VIAL IV PRN (20:13)
[2022-06-13] MEDS: KETOROLAC 30 MG/ML VIAL IV PRN ×2 (03:41→10:36)
[2022-06-13] MEDS: 0.9 % SODIUM CHLORIDE 10 ML SYRINGE IV SCH ×3 (04:43→22:19)
[2022-06-13] MEDS: morphine 4 MG/ML VIAL IV PRN ×3 (05:34→20:47)
[2022-06-13] MEDS: DEXTROSE 5%-1/2NS 1,000 ML IV SCH ×2 (08:14→17:24)
--- NOTE | 2022-06-13 09:52 | General Surgery Progress Note ---
SUBJECTIVE Subjective Patient information: Note initiated : 06/13/22 at 9:49 am Service Date, if different from initiated Date: [] Patient: Gisela Leung 61 y/o F admitted on 06/11/22 for Abd pain. Chief Complaint: [] Principal diagnosis: Postoperative ileus Interval history: Postop day #4 status post robotic assisted extensive lysis of adhesions, incisional hernia repair, incisional hernia repair. Patient feels much better overnight, ostomy is active and has been emptied multiple times. Patient feels less distended, no nausea vomiting fevers or chills. Constitutional Vitals: Vital Signs Temp Pulse Resp BP Pulse Ox O2 Del Method O2 Flow Rate 97.7 F 84 16 132/85 94 Room Air 0 06/13/22 03:50 06/13/22 03:50 06/12/22 23:50 06/13/22 03:50 06/13/22 03:50 06/13/22 03:50 06/12/22 04:00 Period Temp Pulse Resp BP Sys/Perry Pulse Ox O2 Del Method O2 Flow Rate Last 24 Hr 97.7 F-98.2 F 78-89 16-18 114-132/68-85 90-94 Room Air-Room Air Intake and Output 06/12/22 06/13/22 06/13/22 19:59 03:59 11:59 Intake Total 1028 1063 1000 Output Total 2200 1350 450 Balance -1172 -287 550 Weight 258 lb 11.2 oz Intake & Output: Intake & Output 06/12/22 06/13/22 06/13/22 19:59 03:59 11:59 Intake Total 1028 1063 1000 Output Total 2200 1350 450 Balance -1172 -287 550 Weight 258 lb 11.2 oz Intake: IV 530 514 8731 Dextrose 5%-1/2Ns IV Solution 6 522 274 4343 ,000 ml @ 100 mls/hr IV .Q10H [facility] Rx#:[id number] Oral 120 75 Tube Feeding 0 0 0 Output: Gastric Drainage 1600 950 100 Right Nare 1600 950 100 Void Amount 300 200 100 Stool 300 200 250 Other: Urine Appearance Clear Clear Urine Color Yellow Dark Aditi Urine Odor Normal Normal Stool Size Moderate Stool Color Brown Stool Consistency Watery General appearance: cooperative and no acute distress GI/Abdominal GI/Abdominal exam: Present normal bowel sounds and soft; Absent distended, guarding, rebound or tenderness Additional comments: Incisions are clean dry and intact A/P Assessment and plan (1) Postoperative ileus: Plan: Postop day #4 status post ventral hernia repair. Postop complicated by postop ileus. Patient feels better today. Plan: Clamp NG tube, start clear liquid diet. If patient tolerates will reevaluate later in the day. Continue with ambulation. Status: Acute Time Spent With Patient Time: Total time spent is greater than 50% in coordination of care (as documented) at patient's floor/unit and/or counseling patient:
[2022-06-13] MEDS ORDERED: ACETAMINOPHEN 325 MG TABLET PO PRN (21:28)
[2022-06-13] MEDS ORDERED: oxyCODONE HCL 5 MG TABLET PO PRN (21:28)
[2022-06-13] MEDS ORDERED: IBUPROFEN 600 MG TABLET PO PRN (21:28)
[2022-06-14] MEDS: DEXTROSE 5%-1/2NS 1,000 ML IV SCH ×2 (01:14→11:21)
--- NOTE | 2022-06-14 07:31 | General Surgery Progress Note ---
SUBJECTIVE Subjective Patient information: Note initiated : 06/14/22 at 7:29 am Service Date, if different from initiated Date: [] Patient: Gisela Leung 61 y/o F admitted on 06/11/22 for Abd pain. Chief Complaint: [] Principal diagnosis: Postoperative ileus Interval history: Patient continues to have ostomy output, continues with intermittent crampy abdominal pain although less so than prior. NG tube clamped for 24 hours, no nausea or emesis. Patient remains afebrile with normal vital signs, continues to ambulate in the hallway. Constitutional Vitals: Vital Signs Temp Pulse Resp BP Pulse Ox O2 Del Method O2 Flow Rate 98.4 F 77 19 134/79 93 Room Air 0 06/14/22 04:52 06/14/22 04:52 06/14/22 04:52 06/14/22 04:52 06/14/22 04:52 06/14/22 04:52 06/13/22 12:00 Period Temp Pulse Resp BP Sys/Perry Pulse Ox O2 Del Method O2 Flow Rate Last 24 Hr 98.0 F-98.8 F 76-86 17-20 123-138/74-82 93-96 Room Air-Room Air 0 Intake and Output 06/13/22 06/14/22 06/14/22 19:59 03:59 11:59 Intake Total 1000 0 450 Output Total 100 1400 150 Balance 900 -1400 300 Weight 267 lb 8 oz Intake & Output: Intake & Output 06/13/22 06/14/22 06/14/22 19:59 03:59 11:59 Intake Total 1000 0 450 Output Total 100 1400 150 Balance 900 -1400 300 Weight 267 lb 8 oz Intake: IV 1000 Dextrose 5%-1/2Ns IV Solution 1 1000 ,000 ml @ 100 mls/hr IV .Q10H [facility] Rx#:[id number] Oral 450 Tube Feeding 0 0 0 Output: Void Amount 100 300 150 Stool 1100 Other: Urine Appearance Clear Clear Clear Urine Color Dark Aditi Dark Yellow Dark Aditi Urine Odor Normal Normal Strong Stool Color Brown Green Stool Consistency Liquid General appearance: cooperative and no acute distress GI/Abdominal GI/Abdominal exam: Present normal bowel sounds and soft; Absent distended, guarding, rebound or tenderness Additional comments: Incisions are clean dry and intact A/P Assessment and plan (1) Postoperative ileus: Plan: Status post robotic assisted incisional hernia repair, presented back with postoperative ileus. Patient continues to act as a postoperative ileus without full return of bowel function, although no further nausea and vomiting with NG tube clamped for 24 hours. Plan: DC NG tube, full liquid diet with nutritional supplements. Continue to ambulate. Status: Acute Time Spent With Patient Time: Total time spent is greater than 50% in coordination of care (as documented) at patient's floor/unit and/or counseling patient:
[2022-06-14] MEDS: morphine 4 MG/ML VIAL IV PRN ×2 (08:11→13:36)
[2022-06-14] MEDS: 0.9 % SODIUM CHLORIDE 10 ML SYRINGE IV SCH ×2 (09:05→13:41)
--- NOTE | 2022-06-14 16:10 | Discharge Summary ---
Discharge Provider Provider IMPORTANT FOLLOW-UP INFORMATION FOR PCP: Patient information: Note initiated : 06/14/22 at 4:09 pm Service Date, if different from initiated Date: [] Patient: Gisela Leung 61 y/o F admitted on 06/11/22 for Abd pain. Chief Complaint: [] Date of admission: 06/11/22 17:12 Discharge date: 06/14/22 Primary care physician: Bautista Bryant PA-C Consults: 06/11/22 Consult to Physician [CONS] Stat Comment: Consulting Provider: Paulo Tan Reason For Exam: Physician to Consult COURSE Hospital Course Hospital course: Patient mated with a postoperative ileus status post an extensive lysis of adhesions with a incisional and parastomal hernia repair. Patient did well with NG tube decompression, she is now tolerating a full liquid diet with no further nausea vomiting and has return of bowel function. Discharge diagnosis: Status post parastomal hernia repair Time Spent with Patient Time attestation: Total time spent providing and/or coordinating discharge services: Time spent: Less than 30 minutes Physical Examination Vital Signs Vital signs: Temp Pulse Resp BP Pulse Ox O2 Del Method O2 Flow Rate 98.0 F 79 16 119/79 91 Room Air 0 06/14/22 08:20 06/14/22 11:20 06/14/22 11:20 06/14/22 11:20 06/14/22 11:20 06/14/22 11:20 06/13/22 12:00 Discharge Plan Patient/Caregiver Discharge Instructions Activity: increase activity as tolerated Diet: Full Liquid Activity Restrictions/Additional Instructions: Advance diet as tolerated Prescriptions: Continued albuterol sulfate [Proventil HFA] 90 mcg/actuation HFA aerosol inhaler 2 puff INHALATION Q4H PRN (Reason: shortness of breath or wheezing) Qty: 8.5 11RF ipratropium bromide 17 mcg/actuation HFA aerosol inhaler 17 mcg/actuation HFA aerosol inhaler 2 inh INHALATION QID Qty: 12.9 2RF loperamide 2 mg tablet 2 mg PO Q2-4H PRN (Reason: loose stool) Qty: 60 1RF Rx Instructions: after each loose stool until symptoms controlled;do not exceed 16 mg total dose in 24 hrs albuterol sulfate 2.5 mg /3 mL (0.083 %) solution for nebulization 2.5 mg inhalation QID PRN (Reason: shortness of breath or wheezing) Qty: 15 1RF famotidine 20 mg tablet 20 mg PO BID acetaminophen [Tylenol 8 Hour] 650 mg tablet extended release 650 mg PO Q8H PRN (Reason: pain) Qty: 90 0RF ibuprofen 600 mg tablet 600 mg PO Q6H PRN (Reason: pain) Qty: 90 0RF hydrocodone-acetaminophen 5-325 mg tablet 1 tab PO Q4H PRN (Reason: pain) Qty: 20 0RF Follow Up Plan Follow up with: Bautista Bryant PA-C [Primary Care Provider] - Patient Disposition: Home, Self-Care Discharge Orders: Discharge Order (Routine); Ordered 06/14/22 Ordered By: Paulo Tan Pending Pending Pending: Resuscitation Status Resuscitate (Full Code) Diet Full Liquid Diet Start Sun Jun 14 727 Dextrose/Sodium Chloride (Dextrose 5%-1/2ns Iv Solution) 1,000 mls @ 100 mls/hr IV .Q10H SIVAN Rust Admin: 06/14/22 11:21 Dose: 100 mls/hr Documented By: Infusion: 06/14/22 11:14 Dose: 100 mls/hr Documented By: Admin: 06/14/22 01:14 Dose: 100 mls/hr Documented By: Infusion: 06/13/22 18:14 Dose: 100 mls/hr Documented By: Admin: 06/13/22 17:24 Dose: Not Given Documented By: Admin: 06/13/22 08:14 Dose: 100 mls/hr Documented By: Infusion: 06/13/22 07:59 Dose: 100 mls/hr Documented By: Admin: 06/12/22 21:59 Dose: 100 mls/hr Documented By: Infusion: 06/12/22 21:59 Dose: 100 mls/hr Documented By: Admin: 06/12/22 12:06 Dose: 100 mls/hr Documented By: Infusion: 06/12/22 12:06 Dose: 100 mls/hr Documented By: Admin: 06/12/22 03:01 Dose: 100 mls/hr Documented By: Infusion: 06/12/22 03:01 Dose: 100 mls/hr Documented By: Admin: 06/12/22 01:34 Dose: Not Given Documented By: Infusion: 06/11/22 18:00 Dose: 100 mls/hr Documented By: Infusion: 06/11/22 17:19 Dose: 0 mls/hr Documented By: Admin: 06/11/22 16:29 Dose: 100 mls/hr Documented By: MARCIA Morphine Sulfate (Morphine 4 Mg/Ml Vial) 4 mg IV Q4HP PRN; Protocol PRN Reason: Per Pain Protocol Last Admin: 06/14/22 13:36 Dose: 4 mg Documented By: Admin: 06/14/22 08:11 Dose: 4 mg Documented By: Admin: 06/13/22 20:47 Dose: 4 mg Documented By: Admin: 06/13/22 16:53 Dose: 4 mg Documented By: Admin: 06/13/22 05:34 Dose: 4 mg Documented By: Admin: 06/12/22 23:21 Dose: 4 mg Documented By: Admin: 06/12/22 20:04 Dose: 4 mg Documented By: Admin: 06/12/22 11:43 Dose: 4 mg Documented By: Admin: 06/12/22 07:33 Dose: 4 mg Documented By: Admin: 06/11/22 23:25 Dose: 4 mg Documented By: Admin: 06/11/22 16:29 Dose: 4 mg Documented By: MARCIA Ondansetron HCl (Ondansetron 4 Mg/2 Ml Vial) 4 mg IV Q6HP PRN PRN Reason: Nausea And Vomiting Last Admin: 06/12/22 20:13 Dose: 4 mg Documented By: Admin: 06/11/22 16:37 Dose: 4 mg Documented By: MARCIA Sodium Chloride (0.9 % Sodium Chloride 10 Ml Syringe) 10 ml IV Q8 SIVAN Last Admin: 06/14/22 13:41 Dose: Not Given Documented By: Admin: 06/14/22 09:05 Dose: Not Given Documented By: Admin: 06/13/22 22:19 Dose: Not Given Documented By: Admin: 06/13/22 15:23 Dose: Not Given Documented By: Admin: 06/13/22 04:43 Dose: Not Given Documented By: Admin: 06/12/22 21:59 Dose: Not Given Documented By: Admin: 06/12/22 12:07 Dose: Not Given Documented By: Admin: 06/12/22 05:07 Dose: Not Given Documented By: Admin: 06/11/22 20:19 Dose: Not Given Documented By: VINNIE Shift Summary 06/14/22 14:58 Shift Summary by Suzi Smith Primary Diagnosis: Ileus/ Abdominal pain Registration Status: Inpatient Date of Surgery: 06/09/2022 Ventral Hernia Repair with Mesh, Lysis of Adhesions Pertinent Medical Diagnosis/Issue(s): HTN, Recurrent Incisional Hernia, Colostomy (2017), Osteoarthritis, Alcoholic Hepatitis, Alcoholic Fatty Liver Disease, COPD, ETOH, Diverticulitis Med Management: Zofran PRN Skin/Wound Care: 3 lap sites with skin glue closure WDL, Ostomy RLQ Vital Signs with Trends: VSS O2, liter flow/saturations: Room Air Pain Management: Morphine 4 mg x 2, Roxicodone Lab/Radiology: Previously done on 04/10/23. Neuro/Mental Status: A& O x 4 Urinary Elimination Device: Bathroom Urinary output greater than 30mL/hr? Yes Date of last BM: 06/14/2022 - Ostomy RLQ Lines/Tubes: IV Left Hand, D5 NS Activity: 1 SBA for Ambulation in hallways, independent in room. Discharge Plan: Home with family when medically cleared. MD Recommendation: Patient calm and cooperative. D/C NGT this AM - tolerating diet well. Changed to full liquid diet. Up ad sharmaine in room. Family came to visit at bedside. Initialized on 06/14/22 14:58 - END OF NOTE
== END 2022-06-14 17:30 | disposition home or self-care (01) | DRG 394 ==
LOC: ED 10:21 → MEDSUR 17:12
PROVIDERS: ADMIT Surgery; ATTEND Surgery